=== PATIENT | female | born 1945 | race Caucasian/White ===

== ENCOUNTER 2017-04-01 12:14 | Emergency (ER) | payer OTHER, BC ==
[~2017-04-01] VITALS: Ht 154.9 cm; Wt 69.1 kg
[~2017-04-01 12:14] MED LIST: CALCIUM 500 MG1 EACH PO; CELEBREX200 MG PO; CYMBALTA30 MG PO; ESTER-C 1,0001 EACH PO; FLONASE16 G1 BOTH NARES; GLUCOSAMINE &1 EAC1 PO; LEVAQUIN500 MG PO; LOTREL 5/201 CAPSULE PO; MICRO-K10 ME2 PO; OCUVITE LUTEIN1 EACH PO; OMEGA-3 KRILL1 EAC1 PO; PREVACID30 MG PO; REFRESH OPTIVE15 ML BOTH EYES; ROBITUSSIN100 MG/5 M PO; SKELAXIN800 MG PO; SUPER CALCIUM600 MG PO; TRAMADOL HCL50 MG PO; TYLENOL EXTRA500 MG PO; VITAMIN D31000 UNI2 PO; VOLTAREN50 MG PO; [UNRECOGNIZED DRUG - OTHER]
[2017-04-01] MEDS ORDERED: ZITHROMAX Z-PA250 MG PO (13:26)
[2017-04-01 13:40] VITALS: BP 133/84
== END 2017-04-01 13:41 | disposition home or self-care (01) ==
LOC: EME 12:14
DX: S40.811A Abrasion of right upper arm, initial encounter (principal); S50.811A Abrasion of right forearm, initial encounter; I10 Essential (primary) hypertension; W55.03XA Scratched by cat, initial encounter
CPT/HCPCS: 99281; 99284

== ENCOUNTER → 2017-07-21 | Outpatient (CLI) | payer OTHER, BC ==
[~2017-07-21] MED LIST changes: +ZITHROMAX Z-PA250 MG PO
== END | disposition home or self-care (01) ==
LOC: RAD 13:00
DX: M79.605 Pain in left leg (principal); R60.9 Edema, unspecified
CPT/HCPCS: 93971